=== PATIENT | male | born 1990 | race Asian ===

== ENCOUNTER 2018-06-08 07:08 | Emergency (ER) | payer SELFPAY ==
[~2018-06-08] VITALS: Ht 177.8 cm; Wt 79.8 kg
[2018-06-08 07:20] VITALS: BP 114/83; Ht 177.8 cm; Wt 79.8 kg
== END 2018-06-08 08:33 | disposition home or self-care (01) ==
LOC: ED 07:08
DX: S01.81XA Laceration without foreign body of other part of head, initial encounter (principal); V89.2XXA Person injured in unspecified motor-vehicle accident, traffic, initial encounter; Y93.89 Activity, other specified; Y92.488 Other paved roadways as the place of occurrence of the external cause; Y99.8 Other external cause status
CPT/HCPCS: 90715